=== PATIENT | female | born 1985 | race Two or more races ===

== ENCOUNTER 2017-03-15 19:44 | Emergency (ER) | payer SELFPAY ==
[~2017-03-15] VITALS: Ht 149.9 cm; Wt 63.5 kg
[2017-03-15 20:12] VITALS: BP 122/73; Ht 149.9 cm; Wt 63.5 kg
== END 2017-03-15 23:45 | disposition home or self-care (01) ==
LOC: ED 19:44
DX: S22.089A Unspecified fracture of T11-T12 vertebra, initial encounter for closed fracture (principal); V49.9XXA Car occupant (driver) (passenger) injured in unspecified traffic accident, initial encounter; Y93.89 Activity, other specified; Y92.413 State road as the place of occurrence of the external cause; Y99.8 Other external cause status